=== PATIENT | male | born 1990 | race African-American/Black ===

== ENCOUNTER 2024-10-19 11:15 | Emergency (ER) | payer MEDICAID, SELFPAY ==
[2024-10-19 11:40] VITALS: BP 131/80
[2024-10-19 12:00] VITALS: BP 108/81
[2024-10-19 12:04] LABS: % Basophils 0.6 % (0-2); % Eosinophils 1.9 % (0-6); % Immature Granulocytes 0.6 % (0-0.5); % Lymphocytes 41.9 % (20.5-51.1); % Monocytes 11.1 % (1.7-9.3); % Neutrophils 43.9 % (42.2-75.2); Absolute Eosinophils 0.1 10^3/uL (0-0.7); Absolute Lymphocytes 2.8 10^3/uL (1.2-3.4); Absolute Monocytes 0.8 10^3/uL (0.1-0.6); Hemoglobin 13.8 g/dL (13.0-18.0); Mean Corp Hgb Conc. 32.1 g/dL (33.0-37.0); Mean Corpuscular Hgb 27.1 pg (27.0-31.0); Mean Corpuscular Volume 84.5 fL (80.0-94.0); Mean Platelet Volume 8.4 fL (7.4-10.4); Nucleated Red Blood Cells % 0 % (-); Platelet Count 292 10^3/uL (130-400); Red Blood Cell Count 5.09 10^6/uL (4.70-6.10); Red Cell Dist. Width 14.3 % (11.5-14.5); White Blood Cell Count 6.8 10^3/uL (4.8-10.8)
[2024-10-19 12:08] LABS: Urine Albumin Trace (Neg - Trace); Urine Bilirubin Negative (Negative); Urine Character Clear (Clear); Urine Color Yellow; Urine Glucose Negative (Negative); Urine Ketone Negative (Negative); Urine Leukocyte 1+ (Negative); Urine Nitrite Negative (Negative); Urine Occult Blood Negative (Negative); Urine Urobilinogen Negative (Neg - 1+)
[2024-10-19 12:18] LABS: ALT (SGPT) 32 U/L (0-50); AST (SGOT) 25 U/L (17-59); Albumin 4.2 g/dl (3.5-5.0); Alkaline Phosphatase 67 U/L (38-126); Blood Urea Nitrogen 14 mg/dl (9-20); Calcium 9.7 mg/dl (8.4-10.2); Carbon Dioxide 34 mmol/L (22-30); Chloride 100 mmol/L (98-107); Glucose 91 mg/dl (70-99); Potassium 4.5 mmol/L (3.5-5.1); Sodium 140 mmol/L (135-145); Total Bilirubin 0.4 mg/dl (0.2-1.3); Total Protein 7.3 g/dl (6.3-8.2); eGFR > 60.00
--- NOTE | 2024-10-19 12:19 | ED.GENMED ---
History of Present Illness
<Nevin Emery PA-C - Last Filed: 10/19/24 17:17>
General
Chief Complaint: Abdominal Pain
Source: patient
Exam Limitations: none
Time Seen by Provider: 10/19/24 12:05
History of Present Illness
History of Present Illness:
34yoM with no significant past medical history presenting for evaluation of scrotal pain. He woke up from sleep 3 days ago with bilateral scrotal swelling. He developed pain the following day. He has been applying ice and the left scrotal
swelling has improved somewhat. He is also having penile swelling. Pain radiates down the right leg. He states it is difficult for him to initiate his urine stream and that his urine appears dark. He denies any dysuria, hematuria, or penile
discharge. No abdominal pain, flank pain, vomiting, fevers. He was seen at urgent care yesterday and had STD testing obtained, results are still pending. He received 500 mg IM Rocephin, 2g PO metronidazole, and was prescribed a 7-day course of
doxycycline which he has not started yet. Of note, patient had unprotected sex on New Years. He also had norovirus about 2 weeks ago.
Phy Exam
<Nevin Emery PA-C - Last Filed: 10/19/24 17:17>
General Physical Exam
General Presentation: well appearing and no apparent distress
General age: appears stated age
General Skin: warm and dry
General Habitus: normal
General Mental: alert
ENT Exam
ENT Exam: normocephalic
Pulmonary Exam
Pulmonary Exam: no respiratory distress
Gastrointestinal Exam
Gastrointestinal Exam: non tender, soft, non distended and no cva tenderness
Genitourinary Exam Male
Exam Male: other (+Large amount of swelling noted to the R hemiscrotum with palpable irregular firm mass. Mild tenderness appreciated. There is some overlying erythema noted. Penile edema also present.)
Skin Exam
Skin Exam: normal color and warm/dry
Psychiatric Exam
Psychiatric Exam: normal mood/affect
Course
<Nevin Emery PA-C - Last Filed: 10/19/24 17:17>
Orders/Labs/Results
Orders:
Orders
10/19/24 11:45
Urinalysis Reflex To Culture Urgent
Date Specimen was Collected: 10/19/24
Time Specimen was Collected: 11:46
Urine Microscopic Reflex Cult Urgent
Urine Culture Urgent
ARON Source: U
Specimen Description:
Date Specimen was Collected: 10/19/24
Time Specimen was Collected: 11:46
US Scrotum Urgent
Comment:
Reason For Exam: B/L testicular swelling
10/19/24 12:00
CMP [Comprehensive Metabolic Panel] Urgent
Complete Blood Count/With Diff Urgent
10/19/24 13:26
CT Abd/pelvis W Iv Cont Urgent
Comment:
Reason For Exam: Scrotal swelling, abnormal ultrasound
10/19/24 16:00
UROLOGY CONSULT Urgent
Consulting Provider: Victor Manuel Cooper
Was physician already notified: Yes
10/19/24 16:09
CefTRIAXone [Rocephin] 2,000 mg IV NOW STA
10/19/24 16:17
Sterile Water [Sterile Water For Injection] 20 ml IV NOW STA
10/19/24 16:39
Add On - Microbiology Urgent
Tests Added?: urine culture
Abnormal Lab Results
10/19/24 10/19/24
11:45 12:00
MCHC 32.1 L g/dL
(33.0-37.0)
Absolute Monos (auto) 0.8 H 10^3/uL
(0.1-0.6)
Immature Gran % 0.6 H %
(0-0.5)
Monocytes % 11.1 H %
(1.7-9.3)
Carbon Dioxide 34 H mmol/L
(22-30)
Leukocyte Esterase Rfl 1+ A
(Negative)
Urine Bacteria (Reflex) Moderate A
(Negative)
10/19/24 12:00
10/19/24 12:00
Vital Signs
Initial and Last Documented VS:
Initial Vital Signs
Temp Pulse Resp BP Pulse Ox
98.5 F 78 18 131/80 97
10/19/24 11:40 10/19/24 11:40 10/19/24 11:40 10/19/24 11:40 10/19/24 11:40
Last Documented Vital Signs
Temp Pulse Resp BP Pulse Ox
98.5 F 67 20 129/55 99
10/19/24 11:40 10/19/24 16:55 10/19/24 16:55 10/19/24 16:55 10/19/24 16:55
<Emir Butterfield, DO - Last Filed: 10/19/24 15:48>
Orders/Labs/Results
Orders:
Orders
10/19/24 11:45
Urinalysis Reflex To Culture Urgent
Date Specimen was Collected: 10/19/24
Time Specimen was Collected: 11:46
Urine Microscopic Reflex Cult Urgent
Urine Culture Urgent
ARON Source: U
Specimen Description:
Date Specimen was Collected: 10/19/24
Time Specimen was Collected: 11:46
US Scrotum Urgent
Comment:
Reason For Exam: B/L testicular swelling
10/19/24 12:00
CMP [Comprehensive Metabolic Panel] Urgent
Complete Blood Count/With Diff Urgent
10/19/24 13:26
CT Abd/pelvis W Iv Cont Urgent
Comment:
Reason For Exam: Scrotal swelling, abnormal ultrasound
10/19/24 16:00
UROLOGY CONSULT Urgent
Consulting Provider: Victor Manuel Cooper
Was physician already notified: Yes
10/19/24 16:09
CefTRIAXone [Rocephin] 2,000 mg IV NOW STA
10/19/24 16:17
Sterile Water [Sterile Water For Injection] 20 ml IV NOW STA
10/19/24 16:39
Add On - Microbiology Urgent
Tests Added?: urine culture
Abnormal Lab Results
10/19/24 10/19/24
11:45 12:00
MCHC 32.1 L g/dL
(33.0-37.0)
Absolute Monos (auto) 0.8 H 10^3/uL
(0.1-0.6)
Immature Gran % 0.6 H %
(0-0.5)
Monocytes % 11.1 H %
(1.7-9.3)
Carbon Dioxide 34 H mmol/L
(22-30)
Leukocyte Esterase Rfl 1+ A
(Negative)
Urine Bacteria (Reflex) Moderate A
(Negative)
10/19/24 12:00
10/19/24 12:00
Vital Signs
Initial and Last Documented VS:
Initial Vital Signs
Temp Pulse Resp BP Pulse Ox
98.5 F 78 18 131/80 97
10/19/24 11:40 10/19/24 11:40 10/19/24 11:40 10/19/24 11:40 10/19/24 11:40
Last Documented Vital Signs
Temp Pulse Resp BP Pulse Ox
98.5 F 67 20 129/55 99
10/19/24 11:40 10/19/24 16:55 10/19/24 16:55 10/19/24 16:55 10/19/24 16:55
Jennielt;Nevin Emery PA-C - Last Filed: 10/19/24 17:17>
MDM/Problems Addressed
Differential Diagnosis Includes:
34yoM here with testicular pain. Started with bilateral swelling but now symptoms are worse on the R. Seen at urgent care yesterday and started on abx for STD treatment. Had unprotected sex 2 weeks ago. No f/c. VSS. He is well appearing in no
distress. There is a large amount of swelling to the R hemiscrotum with a palpable mass. Abdominal exam is benign. Differential diagnosis includes but is not limited to: orchitis, epididymitis, testicular cancer
Initial ED plan: Check CBC, CMP, UA, and scrotal ultrasound. Patient had STD testing at urgent care yesterday, will defer GC/chlamydia testing.
<Nevin Emery PA-C - Last Filed: 10/19/24 17:17>
*Critical Care Note
Total Time (30-74mins, 75-104mins- exclusive of procedures): Not Applicable
<Nevin Emery PA-C - Last Filed: 10/19/24 17:17>
Update Note
Update Note:
Labs overall unremarkable including normal white count. UA shows 1+ leukocytes with moderate bacteria. Scrotal ultrasound shows normal testicles. There is an atypical structure below the testicles which is not well-visualized on ultrasound. A
follow-up CT was ordered which reveals 'There is a 6.5 cm extratesticular scrotal mass below and posterior to the testicles. 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
lesions and urologic consultation is recommended.' Urology was consulted and patient was evaluated by Dr. Cooper. Urology feels that patient's symptoms are more likely secondary to acute epididymitis and tumor thought to be less likely.
Patient was started on a 7-day course of doxycycline yesterday at urgent care. Will prescribe additional 3-day supply to total 10 days of doxycycline. Patient was also given a prescription for cefdinir x 10 days per urology recommendations.
Patient was advised to follow-up with urology in the outpatient setting. Strict ED return precautions discussed including worsening pain and fevers. Patient agreement with plan and was discharged in stable condition.
ED Attending Note
<Nevin Emery PA-C - Last Filed: 10/19/24 17:17>
-
Portions of this chart may have been created with voice recognition software.� Occasional wrong word or��sound alike� substitutions may have occurred due to the inherent limitations of voice recognition software.
<Emir Butterfield DO - Last Filed: 10/19/24 15:48>
ED Attending Note
Patient seen and examined by attending physician: Yes
I performed the substantive portion of visit, reviewed & personally made and approve the management plan that is documented in note by myself or LAMAR.: Yes
ED Attending Note:
Seen with PA examined independently subacute onset of scrotal mass seen in urgent care started on antibiotics ultrasound CAT scan reports noted patient updated, urology consulted
Discharge Plan
Departure
Patient Disposition: Home (Routine Discharge)
Date of Disposition: 10/19/24
Time of Disposition: 16:32
Patient with high blood pressure during this ER visit?: No
Discharge Problem:
Acute epididymitis, Scrotal mass
Instructions: Epididymitis and Orchitis
Prescriptions:
New
cefdinir 300 mg capsule
300 mg PO Q12H Qty: 20 0RF
doxycycline hyclate 100 mg capsule
100 mg PO BID Qty: 6 0RF
Referrals:
Victor Manuel Cooper MD [Active] -
NONE,* [Family Provider] -
Activity Restrictions/Additional Instructions:
Take antibiotics as prescribed. Apply ice to affected area, elevate your scrotum, and take ibuprofen as needed.
Please call tomorrow to schedule a follow-up appointment with urology. Return to the ER with any worsening symptoms, fevers, severe pain.
Interventions
Interventions:
*Risk Screen - Suicide Last Done: 10/19/24 11:40
*General Assessment Last Done: 10/19/24 11:40
*Neglect/Abuse Screening Last Done: 10/19/24 11:40
ED- Fall Risk Assessment Last Done: 10/19/24 13:37
*ED COVID-19 Vaccine History Last Done: 10/19/24 11:40
XH-Xofhid-Hnyshfklrt Assessment Last Done: 10/19/24 13:37
Discharge Date and Time
Print Language: YEMENI
[2024-10-19 12:26] LABS: Urine Mucus Many
[2024-10-19 12:27] LABS: Urine Amorphous Seen; Urine Urothelial Cell 0-2 /LPF (FEW)
[2024-10-19 12:29] LABS: Urine Bacteria Moderate (Negative); Urine Red Blood Cell 0-2 /HPF (0-2)
[2024-10-19 13:37] VITALS: BMI 32.5
[2024-10-19 14:00] VITALS: BP 119/67
--- NOTE | 2024-10-19 16:11 | CONS.URO ---
Consultation
-
Date/Time Consultation Requested: 10/19/24 1540
Date/Time Consultation Performed: 10/19/24 1605
Requesting Provider: ED
Performing Provider: Kenneth
Reason for Consultation: scrotal swelling
Medical History
History of Present Illness
pt reports a 'severe abdominal infection' during the past week for which he was treated with an antibiotic, the name of which he cannot recall
today he awoke with right scrotal swelling
'not much pain unless I touch it'
no voiding bother
no hx
Allergies/Home Medications
Allergies
Allergy/AdvReac Type Severity Reaction Status Date / Time
No Known Allergies Allergy Unverified 10/19/24 11:42
Physical Exam
Vital Signs
Vital Signs
Temp Pulse Resp BP Pulse Ox
98.5 F 74 18 119/67 99
10/19/24 11:40 10/19/24 14:00 10/19/24 14:00 10/19/24 14:00 10/19/24 14:00
Lab / Testing Results
Laboratory Results
10/19/24 12:00
10/19/24 12:00
Physical Exam
on phone call when I entered ED room
General: No Apparent Distress
Musculoskeletal: Other (normal penis; left hemiscrotum is palpably normal; right testis feels normal; the right epididymis is grossly enlarged and tender)
Assessment / Plan
-
right acute bacterial epididymitis
adenomatoid tumor is less likely
Rec:
Rocpephin 2 g now then Cefdinir 300 mg po bid x 10 days
only if enlargement persists would repeat imaging be recommended
Data Reviewed
-
CT Scan: Image personally visualized and interpreted
Ultrasound: Image personally visualized and interpreted
Lab Data: Labs Reviewed
[2024-10-19] MEDS: ROCEPHIN 2000 MG IV (16:42)
[2024-10-19] MEDS: STERILE WATER FOR INJECTION 20 ML IV (16:43)
[2024-10-19 16:55] VITALS: BP 129/55
== END 2024-10-19 17:00 | disposition home or self-care (01) ==
LOC: EMR 11:15
PROVIDERS: Emergency Medicine; CONSULT PHYSICIAN Specialist; EMERGENCY PHYSICIAN Emergency Medicine
DX: N45.1 Epididymitis (principal); B96.89 Other specified bacterial agents as the cause of diseases classified elsewhere; N50.89 Other specified disorders of the male genital organs
CPT/HCPCS: 96374; 99284; 74177; 76870; 80053; 81003; 81015; 85025; 87086; 93976; Q9967